=== PATIENT | male | born 1960 ===

== ENCOUNTER 2016-08-14 06:08 | Day surgery (SDC) | payer BC ==
[2016-08-14 07:39] VITALS: BMI 27.4
[2016-08-14 07:47] VITALS: TEMP 98.4
[2016-08-14] MEDS ORDERED: Lactated Ringer's 500 ML IV ONE (08:30)
[2016-08-14] MEDS ORDERED: Propofol 10 mg/ml Inj (20 ML) ONE (08:32)
[2016-08-14 09:54] VITALS: RESP 20
[2016-08-14 09:55] VITALS: O2SAT 100
[2016-08-14 12:40] VITALS: BP 118/62; PULSE 65
== END 2016-08-14 10:15 | disposition home or self-care (01) ==
LOC: C.ENDO 06:08
PROVIDERS: ATTEND Internal Medicine
DX: K29.70 Gastritis, unspecified, without bleeding (principal); K52.89 Other specified noninfective gastroenteritis and colitis; K64.8 Other hemorrhoids; K52.9 Noninfective gastroenteritis and colitis, unspecified; B96.81 Helicobacter pylori [H. pylori] as the cause of diseases classified elsewhere
CPT/HCPCS: 43239; 45380; 88305; 88342; J2704; J3010; J7120